=== PATIENT | male | born 1960 | race African-American/Black ===

== ENCOUNTER 2022-07-06 21:29 | Emergency (ER) | payer BC ==
[2022-07-06 21:57] VITALS: RESP 16; TEMP 97.9; BMI 34.4
[2022-07-06 22:17] VITALS: BP 157/114; PULSE 73
== END 2022-07-06 22:19 | disposition home or self-care (01) ==
LOC: JER 21:29
DX: R04.0 Epistaxis (principal)
CPT/HCPCS: 99282-25